=== PATIENT | male | born 1955 | race Caucasian/White ===

== ENCOUNTER 2016-09-07 10:40 | Emergency (ER) | payer MEDICARE ==
--- NOTE | 2016-09-07 11:03 | ERNOTE ---
Medical Problem HPI - General Chief Complaint: General Assessment Time Seen by Provider: 09/07/16 10:40 Source: patient Exam Limitations: no limitations - Immun/Allergies/Home Medications Immunizations: IMMUNIZATION HX Immunizations Up to Date No Allergies/Adverse Reactions: Allergies No Known Allergies Allergy (Unverified 09/07/16 10:54) Home Medications: HOME MEDICATIONS Baclofen 10 mg PO TID 09/07/16 [Last Taken Unknown] Gabapentin [Neurontin] 300 mg PO TID 09/07/16 [Last Taken Unknown] HYDROcodone/ACETAMINOPHEN [[place] 5-325 Tablet] 1 each PO DAILY 09/07/16 [Last Taken Unknown] Oxybutynin Chloride [Ditropan Xl] 10 mg PO DAILY 09/07/16 [Last Taken Unknown] Ramipril 1.25 mg PO DAILY 09/07/16 [Last Taken Unknown] Sertraline HCl [Zoloft] 150 mg PO DAILY 09/07/16 [Last Taken Unknown] traZODone HCL [Trazodone HCl] 100 mg PO HS 09/07/16 [Last Taken Unknown] - History of Present History Narrative: Patient is here for concerns about increased numbness on the right side of his body. Three years ago he had a stroke that affected the right side of this body. He give the story of a fall with head injury, prolonged coma/amnesia, and head surgery so it was most likely a traumatic/hemorrhagic stroke. He has had decreased sensation, functioning and chronic pain on the right side since. Two weeks ago he ran out of his hydrocodone, tramadol and xanax, but was still on his other medication including gabapentin and baclofen. He was not able to get in with his doctor till three days ago, was restarted on vicodin at a lower dose, but did not get his tramadol and xanax refilled. He states that he has felt 'bad' since running out of his medication with increased pain on the right side. When he woke up this morning at 09:00 his right arm was across his chest and felt more numb than usual, he got scared and called EMS. He has chronic double vision since the stroke, no new fall, no recent illness. Review of Systems - Review of Systems Constitutional: Absent: recent illness, fever, chills EYE: Present: double vision - chronic ENT: Absent: nose congestion, sore throat Respiratory: Absent: shortness of breath, cough Cardiology: Absent: chest pain Gastrointestinal/Abdominal: Absent: nausea, vomiting, abdominal pain Genitourinary: Present: no symptoms reported Musculoskeletal: Absent: back pain, neck pain Skin: Absent: rash Neurological: Present: See HPI, headache, numbness - Patient's Past Medical History Patient History - Medical: Anxiety, Chronic Pain Patient History - Cardiac/Respiratory: CVA/Stroke, Hypertension, Hyperlipidemia Patient History - Cancer: No Hx of Cancer Patient History - Other: None - Social History Living Situations: home Psych History: Hx of Anxiety, Hx of Depression Alcohol Use: heavy - 6-8 beer daily between noon and midnight - Immunizations Immunizations Up to Date: No Physical Exam - Physical Exam General Appearance: Present: wd/wn, alert, no apparent distress, anxious Eye Exam: Normal inspection: bilateral, PERRL: bilateral, EOMI: bilateral - reports double vision on exam (chronic since CVA) Ears, Nose, Throat: Present: normal ENT inspection, normal pharynx Neck: Present: normal inspection, nontender, supple, full range of motion Respiratory: Present: no respiratory distress, normal breath sounds, no accessory muscle use, lungs clear Cardiovascular/Chest: Present: regular rate, rhythm, no murmur, normal peripheral pulses Gastrointestinal/Abdominal: Present: nontender, nondistended, soft Extremity Exam: Present: normal inspection, no edema, other - right hand muscle atrophy Neurological Exam: Present: alert, oriented, normal mood/affect, social work case manager II-XII nml as tested, normal cerebellar test - on left, on right side severe intention tremor, other - able to hold up both hand (with chaking on the right) Skin Exam: Present: normal color, warm/dry ED Progress - Results and Orders Patient's Lab Results:: I have reviewed the patient's lab results. - Vital Signs Patient's Vital Signs:: I have reviewed the patient's vital signs. Vital Signs: Vital Signs 09/07/16 10:41 Temperature 36.7 C Pulse Rate 92 Respiratory 15 Rate Blood Pressure 164/97 O2 Sat by Pulse 99 Oximetry - EKG EKG: NSR, no ST T wave changes, other - no acute changes EKG read: Interp. by me - X-Ray X-Ray #1 X-Ray: chest - no acute changes Interpretation: Reviewed by me - CT/Ultrasound CT/Ultrasound Narrative: CT head: chronic no acute intracranial changes - Progress/Reassessment Chief Complaint: General Assessment Progress Note-Subjective: 09/07/16 11:08 on review of [employer] patient has only been getting small amounts of xanax, tramadol , hydrocodone in decreasing amounts over the last few months 09/07/16 11:51 patient resting, woke patient up to discuss test results at length, explained that I won't be able to refill chronic pain medication, but would give him one dose here Departure - Departure Clinical Impression: Chronic pain Qualifiers: Chronic pain type: due to trauma Qualified Code(s): G89.21 - Chronic pain due to trauma Disposition: Home self-care Condition: Good Instructions: Chronic Pain Additional Instructions: call your doctor after the weekend to discuss your medication and possible referral to a pain specialist or neurologist take all your medication as prescribed Referrals: LINDA DYKES M.D. [Non Staff Physicians] -
[2016-09-07 11:14] LABS: Hematocrit 43.4 % (42.0-52.0); Hemoglobin 15.2 gm/dL (13.5-18.0); Mean Cell Volume 89.9 fl (78-100); Mean Corpuscular Hemoglobin 31.5 pg (27-31); Neutrophil # 3.1 K/mm3 (1.3-6.0); Neutrophil % 63.1 % (42-75.0); Red Blood Count 4.83 M/mm3 (4.7-6.0); Red Cell Distribution Width 12.3 % (11.5-14.0); White Blood Count 4.9 K/mm3 (4.0-10.5)
[2016-09-07 11:27] LABS: Albumin * 3.8 gm/dl (3.4-5.0); Anion Gap 17.4 mmol/L (6.8-13.8); BUN/Creatinine Ratio 12.3 (9.0-21.6); Bilirubin, Total 0.6 mg/dL (0.0-1.1); Ca. Corrected For Albumin 9.1 mg/dL (8.4-10.2); Calcium * 9.3 mg/dL (7.9-10.9); Carbon Dioxide 23.8 mmol/L (24-32.6); Platelet Count 170 K/mm3 (150-450); Potassium 4.2 mmol/L (3.4-4.6); Total Protein 7.3 gm/dL (6.2-8.2)
[2016-09-07 11:32] LABS: INR 1.06 INR (0.90-1.10); Partial Thrombolplastin Time 24.3 Seconds (24-32)
[2016-09-07] MEDS ORDERED: ALPRAZolam 0.25 MG TABLET PO ONE (11:50)
[2016-09-07] MEDS ORDERED: oxyCODONE HCL/ACETAMINOPHEN 1 TAB TABLET PO ONE (11:50)
[2016-09-07] MEDS ORDERED: oxyCODONE HCL/ACETAMINOPHEN 1 TAB TABLET ONE (12:06)
[2016-09-07] MEDS ORDERED: ALPRAZolam 0.25 MG TABLET ONE (12:06)
[2016-09-07 12:27] VITALS: BP 136/84
--- OUTSIDE RECORDS SUMMARY | 2016-09-07 12:37 | XMS REPORT | CCD ---
:1955 Author Name IVELISSE FRANCO Address [address] [facility] Unavailable [place], [place] [id number] Care Team Providers Name Role Phone SHAN OBRIEN MD Attending Physician Unavailable SHAN OBRIEN MD Er Physician 1 Unavailable TRAVON Moreland Registered Nurse Unavailable Vital Signs Unknown. Allergies Allergy Code Allergy Type Reaction Status No Known Allergies 0 No known allergies Active Procedures Procedure Code Procedure Type Date CT HEAD W/O 78759407 SNOMED CT 04/02/[address] 04/02/2013 History of Immunizations Unknown. Problems Problem Code Start Date Resolved Date Status Other and unspecified intracranial 107537873 04/02/2013 Active hemorrhage following injury, without mention of open intracranial wound, with state of consciousness unspecified Encephalopathy, unspecified 25143205 04/02/2013 Active Other and unspecified alcohol dependence, 131922583 Active continuous drinking behavior Results ALCOHOL Test Name Code Test Result Test Units Test Date/Time ALCOHOL 3.0000 mg/dL 04/02/2013 11:51 LIPASE Test Name Code Test Result Test Units Test Date/Time LIPASE 132.0000 U/L 04/02/2013 11:35 CBC Test Name Code Test Result Test Units Test Date/Time WBC 6690-2 5.0000 K/uL 04/02/2013 11:35 RBC 789-8 4.5000 M/uL 04/02/2013 11:35 HEMOGLOBIN 718-7 14.1000 g/dL 04/02/2013 11:35 HEMATOCRIT 41.5000 % 04/02/2013 11:35 MCV 92.2000 fL 04/02/2013 11:35 MCH 31.3000 PG 04/02/2013 11:35 MCHC 34.0000 G/DL 04/02/2013 11:35 RDW-SD 41.9000 FL 04/02/2013 11:35 RDW-CV 12.6000 % 04/02/2013 11:35 PLATELETS 155.0000 K/UL 04/02/2013 11:35 MPV 9.0000 FL 04/02/2013 11:35 %GRAN 71.9000 % 04/02/2013 11:35 %LYMPH 8.8000 % 04/02/2013 11:35 %MONO 18.3000 % 04/02/2013 11:35 %EOS 0.0000 % 04/02/2013 11:35 %BASO 1.0000 % 04/02/2013 11:35 #GRAN 3.5800 K/UL 04/02/2013 11:35 #LYMPH 0.4400 K/UL 04/02/2013 11:35 #MONO 0.9100 K/UL 04/02/2013 11:35 #EOS 0.0000 K/UL 04/02/2013 11:35 #BASO 0.0500 K/UL 04/02/2013 11:35 SLIDE REVIEWED? NOT INDICATED N/A 04/02/2013 11:35 MANUAL DIFF NOT INDICATED N/A 04/02/2013 11:35 COMPREHENSIVE METABOLIC PANEL Test Name Code Test Result Test Units Test Date/Time GLUCOSE 117.0000 mg/dL 04/02/2013 11:35 SODIUM 138.0000 mmol/L 04/02/2013 11:35 POTASSIUM 3.4000 mmol/L 04/02/2013 11:35 CHLORIDE 100.0000 mmol/L 04/02/2013 11:35 CO2 28.0000 mmol/L 04/02/2013 11:35 BUN 8.0000 mg/dL 04/02/2013 11:35 CREATININE 0.9000 mg/dL 04/02/2013 11:35 BUN/CREAT 8.9000 04/02/2013 11:35 CALCIUM 8.8000 mg/dL 04/02/2013 11:35 TOTAL BILI 0.6000 mg/dL 04/02/2013 11:35 TOTAL PROTEIN 7.8000 g/dL 04/02/2013 11:35 ALBUMIN 3.8000 g/dL 04/02/2013 11:35 A/G RATIO 0.9000 04/02/2013 11:35 ALKALINE PHOS 95.0000 IU/L 04/02/2013 11:35 AST/SGOT 24.0000 IU/L 04/02/2013 11:35 ALT/SGPT 26.0000 IU/L 04/02/2013 11:35 ANION GAP 13.8000 mmol/L 04/02/2013 11:35 AGE 57.0000 YE[age] 04/02/2013 11:35 GFR 92.7800 ml/min 04/02/2013 11:35 Medications Unknown. Medications Administered Unknown. Encounters Encounter Diagnosis Diagnosis Code Start Date TRAUMATIC BRAIN HEM NEC 95889 04/02/2013 Social History Smoking Status Code Start Date End Date Former smoker [id number] Patient Decision Aids Unknown. Instructions You were admitted to [facility] on 04/02/2013 with a principle diagnosis of TRAUMATIC BRAIN HEM NEC. You had the following tests done: IAMEHURXRUDPDIUSJRZFGLQRILXFGTLA0TNWQXEQWFSKDFHXO/CREATCALCIUMTOTAL BILITOTAL PROTEINALBUMINA/G RATIOALKALINE PHOSAST/SGOTALT/SGPTANION LWVTENIGIFSSNXKTGBTXEXCEVAVNOSISHPJLBAMGWTPTHOGP-HUDRR-MKNFVQXPHHIYOR%GRAN% LYMPH%MONO%EOS%BASO#GRAN#LYMPH#MONO#EOS#BASOSLIDE REVIEWED?MANUAL DIFFLIPASEALCOHOL You were discharged from [facility] on 04/02/2013. Should you have any questions prior to discharge, please contact a member of your healthcare team. If you have left the hospital and have any questions, please contact your primary care physician. Chief Complaint and Reason For Visit Chief Complaint Date of Onset Fall Function Status Unknown. Plan of Care Unknown. Referral/Transition of Care Unknown.
--- OUTSIDE RECORDS SUMMARY | 2016-09-07 12:37 | XMS REPORT | CCD ---
:1955 Author Name MAGDALENO VIGIL Address [address] [facility] Unavailable [place], [place] [id number] Care Team Providers Name Role Phone LINDA DYKES Attending Physician Unavailable Vital Signs Unknown or Not Available. Allergies Allergy Code Allergy Type Reaction Status No Known Allergies 0 No known allergies Active Procedures Procedure Code Procedure Type Date TSH 78987757 SNOMED CT 02/05/2015 History of Immunizations Unknown or Not Available. Problems Problem Code Start Date Resolved Date Status Other and unspecified intracranial 512715544 04/02/2013 Active hemorrhage following injury, without mention of open intracranial wound, with state of consciousness unspecified Encephalopathy, unspecified 19386595 04/02/2013 Active Other and unspecified alcohol dependence, 471697479 Active continuous drinking behavior Pain in right hip 33072889 10/08/2013 Active Results TSH - Collect Date/Time: 02/05/2015 11:13 Test Name Code Test Result Test Units Test Ref Range TSH 3016-3 2.147 uIU/ml L=0.360 H=3.740 Active Medications Medication Code Dose Units Frequency Route Modification Start Date/Time ALPRAZolam 1MG 467908 1 MILLIGRAMS 2 x a day, as ORAL 02/06/2014 Oral Tablet needed 18:26 Prescription Detail TAKE 1 MILLIGRAMS ORAL 2 x a day, as needed Aspirin 81MG Oral Tablet, Enteric 489008 81 MILLIGRAMS DAILY ORAL 02/06 18:26 Coated Prescription Detail TAKE 81 MILLIGRAMS ORAL DAILY Famotidine 10MG Oral Tablet 493678 10 MILLIGRAMS TWICE A DAY ORAL 02/06 18:26 Prescription Detail TAKE 10 MILLIGRAMS ORAL TWICE A DAY Gabapentin 300MG Oral 908607 300 MILLIGRAMS THREE TIMES A DAY ORAL 18:26 Capsule Prescription Detail TAKE 300 MILLIGRAMS ORAL THREE TIMES A DAY HYDROcodone bitartrate-acetaminophen 363650 1 EACH NEEDED ORAL 02/06 18:26 325MG-5MG Oral Tablet Prescription Detail TAKE 1 EACH ORAL NEEDED Oxybutynin 10MG Oral Tablet, 424342 10 MILLIGRAMS DAILY ORAL 2013 18:26 Extended Release Prescription Detail TAKE 10 MILLIGRAMS ORAL DAILY traMADol HCL 50MG Oral 342886 50 MILLIGRAMS THREE TIMES A DAY ORAL 18:26 Tablet Prescription Detail TAKE 50 MILLIGRAMS ORAL THREE TIMES A DAY Triamcinolone Acetonide 2525791 1 EACH DAILY TOPICAL APPLICATION 2013 18:26 0.025% Topical application Ointment Prescription Detail 1 EACH TOPICAL APPLICATION DAILY Vitamin B1 100MG Oral Tablet 444910 100 MILLIGRAMS DAILY ORAL 2013 18:26 Prescription Detail TAKE 100 MILLIGRAMS ORAL DAILY Vitamin D 400IU Oral 779997 400 INTERNATIONAL UNITS DAILY ORAL 2013 18:26 Tablet Prescription Detail TAKE 400 INTERNATIONAL UNITS ORAL DAILY Dok 100MG Oral 0959220 100 MILLIGRAMS *TWICE DAILY BY MOUTH 11/04/2013 08:20 Capsule, Liquid Filled Prescription Detail TAKE 100 MILLIGRAMS BY MOUTH *TWICE DAILY Lisinopril 30MG Oral 91684452284 30 MILLIGRAMS DAILY BY MOUTH 2013 08:20 Tablet Prescription Detail TAKE 30 MILLIGRAMS BY MOUTH DAILY Sertraline Hydrochloride 257610 150 MILLIGRAMS DAILY BY MOUTH 2013 08:20 100MG Oral Tablet Prescription Detail TAKE 150 MILLIGRAMS BY MOUTH DAILY Multivitamin Oral Tablet 777066 1 EACH DAILY ORAL 11/04/2013 08:19 Prescription Detail TAKE 1 EACH ORAL DAILY Medications Administered During Visit Unknown or Not Available. Encounters Encounter Diagnosis Diagnosis Code Start Date Fatigue 77364735 02/05/2015 Social History Smoking Status Code Start Date End Date Never smoker 811077817 Patient Decision Aids Unknown or Not Available. Discharge Instructions You were admitted to [facility] on 02/05/2015 with a principal diagnosis of Fatigue . You were discharged from [facility] on 02/05/2015. Should you have any questions prior to discharge, please contact a member of your healthcare team. If you have left the hospital and have any questions, please contact your primary care physician. Chief Complaint and Reason For Visit Unknown or Not Available. Function Status Unknown or Not Available. Plan of Care Unknown or Not Available. Referral/Transition of Care Unknown or Not Available.
--- OUTSIDE RECORDS SUMMARY | 2016-09-07 12:37 | XMS REPORT | CCD ---
:1955 Author Name AKILIVELISSE MANZO Dominik Address [address] [facility] Unavailable [place], [place] [id number] Care Team Providers Name Role Phone PJ DODD, JASIEL PINON Attending Physician Unavailable JASIEL OLIVA MD Er Physician 1 Unavailable Vital Signs Vital Sign Value Unit Weight Measured 190 lbs Height 70 in BMI (Body Mass Index) 27.26 kg/m^2 BSA (Body Surface Area) 2.06 m^2 Allergies Allergy Code Allergy Type Reaction Status No Known Allergies 0 No known allergies Active Procedures Unknown. History of Immunizations Unknown. Problems Problem Code Start Date Resolved Date Status Other and unspecified intracranial 499032109 04/02/2013 Active hemorrhage following injury, without mention of open intracranial wound, with state of consciousness unspecified Encephalopathy, unspecified 98702347 04/02/2013 Active Other and unspecified alcohol dependence, 519585046 Active continuous drinking behavior Results PT/PTT, PLASMA Test Name Code Test Result Test [place] [address]-30 10.3000 Sec 07/27/2013 11:08 INR 98457-6 1.0000 07/27/2013 11:08 PTT 07146-9 24.3000 Sec 07/27/2013 11:08 COMPREHENSIVE METABOLIC PANEL Test Name Code Test Result Test Units Test Date/Time GLUCOSE 108.0000 mg/dL 07/27/2013 11:08 SODIUM 133.0000 mmol/L 07/27/2013 11:08 POTASSIUM 4.6000 mmol/L 07/27/2013 11:08 CHLORIDE 98.0000 mmol/L 07/27/2013 11:08 CO2 31.0000 mmol/L 07/27/2013 11:08 BUN 21.0000 mg/dL 07/27/2013 11:08 CREATININE 0.9000 mg/dL 07/27/2013 11:08 BUN/CREAT 23.3000 07/27/2013 11:08 CALCIUM 9.3000 mg/dL 07/27/2013 11:08 TOTAL BILI 0.4000 mg/dL 07/27/2013 11:08 TOTAL PROTEIN 7.2000 g/dL 07/27/2013 11:08 ALBUMIN 3.6000 g/dL 07/27/2013 11:08 A/G RATIO 1.0000 07/27/2013 11:08 ALKALINE PHOS 124.0000 IU/L 07/27/2013 11:08 AST/SGOT 13.0000 IU/L 07/27/2013 11:08 ALT/SGPT 19.0000 IU/L 07/27/2013 11:08 ANION GAP 9.0000 mmol/L 07/27/2013 11:08 AGE 57.0000 YE[age] 07/27/2013 11:08 GFR 92.7800 ml/min 07/27/2013 11:08 CBC Test Name Code Test Result Test Units Test Date/Time WBC 6690-2 8.7000 K/uL 07/27/2013 11:08 RBC 789-8 4.1800 M/uL 07/27/2013 11:08 HEMOGLOBIN 718-7 12.2000 g/dL 07/27/2013 11:08 HEMATOCRIT 35.6000 % 07/27/2013 11:08 MCV 85.2000 fL 07/27/2013 11:08 MCH 29.2000 PG 07/27/2013 11:08 MCHC 34.3000 G/DL 07/27/2013 11:08 RDW-SD 38.1000 FL 07/27/2013 11:08 RDW-CV 12.6000 % 07/27/2013 11:08 PLATELETS 221.0000 K/UL 07/27/2013 11:08 MPV 9.0000 FL 07/27/2013 11:08 %GRAN 72.6000 % 07/27/2013 11:08 %LYMPH 14.5000 % 07/27/2013 11:08 %MONO 10.4000 % 07/27/2013 11:08 %EOS 2.2000 % 07/27/2013 11:08 %BASO 0.3000 % 07/27/2013 11:08 #GRAN 6.3000 K/UL 07/27/2013 11:08 #LYMPH 1.2600 K/UL 07/27/2013 11:08 #MONO 0.9000 K/UL 07/27/2013 11:08 #EOS 0.1900 K/UL 07/27/2013 11:08 #BASO 0.0300 K/UL 07/27/2013 11:08 SLIDE REVIEWED? NOT INDICATED N/A 07/27/2013 11:08 MANUAL DIFF NOT INDICATED N/A 07/27/2013 11:08 Medications Medication Code Dose Units Frequency Route Modification Start Stop Date/Time Date/Time Oxycodone HCl 3296543 20 MILLIGRA Every 4hr ORAL 5MG Oral MS as needed Tablet Milk Of 587006 30 MILLILIT Every 6hr ORAL Magnesia ERS as needed 400MG/5ML Oral Suspension Tylenol 325MG 452230 650 MILLIGRA Every 4hr ORAL Oral Tablet MS as needed Bisac-Evac 753910 10 MILLIGRA NEEDED RECTAL 10MG Rectal MS Suppository Alprazolam 619527 0.25 MILLIGRA Every 8 hr ORAL 0.25MG Oral MS as needed Tablet TraZODONE 999121 50 MILLIGRA BEFORE BED ORAL Hydrochloride MS 50MG Oral Tablet Tramadol 50MG 035652 50 MILLIGRA TWICE A ORAL Oral Tablet MS DAY Sertraline 569953 150 MILLIGRA DAILY ORAL 100MG Oral MS Tablet Meloxicam 105579 7.5 MILLIGRA DAILY ORAL 7.5MG Oral MS Tablet Lisinopril 948940 30 MILLIGRA DAILY ORAL 30MG Oral MS Tablet Gabapentin 372507 300 MILLIGRA THREE ORAL 300MG Oral MS TIMES A Capsule DAY Doc-Q-Lace 6893576 100 MILLIGRA DAILY ORAL 100MG Oral MS Capsule, Liquid Filled Multivitamin 924976 1 EACH DAILY ORAL Oral Tablet Baclofen 10MG 473549 5 MILLIGRA THREE ORAL Oral Tablet MS TIMES A DAY Medications Administered Unknown. Encounters Encounter Diagnosis Diagnosis Code Start Date CL SKUL BASE FX W O COMA 88032 07/27/2013 Social History Smoking Status Code Start Date End Date Unknown if ever smoked [id number] Patient Decision Aids Unknown. Instructions You were admitted to [facility] on 07/27/2013 with a principle diagnosis of CL SKUL BASE FX W O COMA. You had the following procedures done:INJECT INFUSE NEC You were discharged from [facility] on 07/27/2013. Should you have any questions prior to discharge, please contact a member of your healthcare team. If you have left the hospital and have any questions, please contact your primary care physician. Chief Complaint and Reason For Visit Chief Complaint Date of Onset FALL Function Status Unknown. Plan of Care Unknown. Referral/Transition of Care Unknown.
--- OUTSIDE RECORDS SUMMARY | 2016-09-07 12:37 | XMS REPORT | CCD ---
:1955 Author Name MAGDALENO VIGIL Address [address] [facility] Unavailable [place], [place] [phone] Care Team Providers Name Role Phone NESHA TAVAREZ Attending Physician Unavailable NESHA TAVAREZ Er Physician 1 Unavailable Vital Signs Unknown or Not Available. Allergies Allergy Code Allergy Type Reaction Status No Known Allergies 0 No known allergies Active Procedures Procedure Code Procedure Type Date RIBS-UNI W 1 VW CHEST LT 09987951 SNOMED CT 06/13/2015 INCENTIVE SPIROMETRY DEVICE 271032479 SNOMED CT 06/13/2015 History of Immunizations Unknown or Not Available. Problems Problem Code Start Date Resolved Date Status Other and unspecified intracranial 148690656 04/02/2013 Active hemorrhage following injury, without mention of open intracranial wound, with state of consciousness unspecified Encephalopathy, unspecified 30099487 04/02/2013 Active Other and unspecified alcohol dependence, 843810596 Active continuous drinking behavior Pain in right hip 20934283 10/08/2013 Active Results Unknown or Not Available. Active Medications Medication Code Dose Units Frequency Route Modification Start Date/Time ALPRAZolam 1MG 81795653496 1 MILLIGRAMS 2 x a day, ORAL 02/06/2014 Oral Tablet as needed 18:26 Prescription Detail TAKE 1 MILLIGRAMS ORAL 2 x a day, as needed Aspirin 81MG Oral Tablet, Enteric 835441 81 MILLIGRAMS DAILY ORAL 02/06 18:26 Coated Prescription Detail TAKE 81 MILLIGRAMS ORAL DAILY Famotidine 10MG Oral Tablet 458667 10 MILLIGRAMS TWICE A DAY ORAL 02/06 18:26 Prescription Detail TAKE 10 MILLIGRAMS ORAL TWICE A DAY Gabapentin 300MG Oral 244978 300 MILLIGRAMS THREE TIMES A DAY ORAL 18:26 Capsule Prescription Detail TAKE 300 MILLIGRAMS ORAL THREE TIMES A DAY HYDROcodone bitartrate-acetaminophen 694463 1 EACH NEEDED ORAL 02/06 18:26 325MG-5MG Oral Tablet Prescription Detail TAKE 1 EACH ORAL NEEDED Oxybutynin 10MG Oral Tablet, 028588 10 MILLIGRAMS DAILY ORAL 2013 18:26 Extended Release Prescription Detail TAKE 10 MILLIGRAMS ORAL DAILY traMADol HCL 50MG Oral 956517 50 MILLIGRAMS THREE TIMES A DAY ORAL 18:26 Tablet Prescription Detail TAKE 50 MILLIGRAMS ORAL THREE TIMES A DAY Triamcinolone Acetonide 6452664 1 EACH DAILY TOPICAL APPLICATION 2013 18:26 0.025% Topical application Ointment Prescription Detail 1 EACH TOPICAL APPLICATION DAILY Vitamin B1 100MG Oral Tablet 559987 100 MILLIGRAMS DAILY ORAL 2013 18:26 Prescription Detail TAKE 100 MILLIGRAMS ORAL DAILY Vitamin D 400IU Oral 036679 400 INTERNATIONAL UNITS DAILY ORAL 2013 18:26 Tablet Prescription Detail TAKE 400 INTERNATIONAL UNITS ORAL DAILY Dok 100MG Oral 2957110 100 MILLIGRAMS *TWICE DAILY BY MOUTH 11/04/2013 08:20 Capsule, Liquid Filled Prescription Detail TAKE 100 MILLIGRAMS BY MOUTH *TWICE DAILY Lisinopril 30MG Oral Tablet 757995 30 MILLIGRAMS DAILY BY MOUTH 2013 08:20 Prescription Detail TAKE 30 MILLIGRAMS BY MOUTH DAILY Sertraline Hydrochloride 713300 150 MILLIGRAMS DAILY BY MOUTH 2013 08:20 100MG Oral Tablet Prescription Detail TAKE 150 MILLIGRAMS BY MOUTH DAILY Multivitamin Oral Tablet 0168752 1 EACH DAILY ORAL 11/04/2013 08:19 Prescription Detail TAKE 1 EACH ORAL DAILY Medications Administered During Visit Unknown or Not Available. Encounters Encounter Diagnosis Diagnosis Code Start Date Fracture of one rib, left side, initial encounter for [id number] 06/13/2015 closed fracture Social History Smoking Status Code Start Date End Date Never smoker 120217518 Patient Decision Aids Unknown or Not Available. Discharge Instructions You were admitted to [facility] on 06/13/2015 10:40 with a principal diagnosis of Fracture of one rib, left side, init for clos fx You were discharged from [facility] on 06/13/2015 12:12 Should you have any questions prior to discharge, please contact a member of your healthcare team. If you have left the hospital and have any questions, please contact your primary care physician. Chief Complaint and Reason For Visit Chief Complaint Date of Onset SHORT OF BREATH AFTER FALL Function Status Unknown or Not Available. Plan of Care Unknown or Not Available. Referral/Transition of Care Unknown or Not Available.
--- OUTSIDE RECORDS SUMMARY | 2016-09-07 12:37 | XMS REPORT | CCD ---
:1955 Author Name MAGDALENO VIGIL Address [address] Unavailable [place], [place] [id number] Care Team Providers Name Role Phone LINDA DYKES Attending Physician Unavailable Vital Signs Unknown or Not Available. Allergies Allergy Code Allergy Type Reaction Status No Known Allergies 0 No known allergies Active Procedures Procedure Code Procedure Type Date LIPID PANEL [id number] SNOMED CT 03/13/2016 History of Immunizations Unknown or Not Available. Problems Problem Code Start Date Resolved Date Status Other and unspecified intracranial [id number] 04/02/2013 Active hemorrhage following injury, without mention of open intracranial wound, with state of consciousness unspecified Encephalopathy, unspecified 44963528 04/02/2013 Active Other and unspecified alcohol dependence, [id number] Active continuous drinking behavior Pain in right hip 06471742 10/08/2013 Active Results COMPREHENSIVE METABOLIC PANEL - Collect Date/Time: 03/13/2016 10:19 Test Name Code Test Result Test Units Test Ref Range GLUCOSE 88 mg/dL L=74 H=106 SODIUM 142 mmol/L L=136 H=145 POTASSIUM 4.1 mmol/L L=3.5 H=5.1 CHLORIDE 102 mmol/L L=98 H=107 CO2 32 mmol/L L=21 H=32 BUN 7.0 mg/dL L=7.0 H=18.0 CREATININE 0.7 mg/dL L=0.8 H=1.3 BUN/CREAT 10.0 L=7.6 H=21.2 CALCIUM 8.9 mg/dL L=8.6 H=10.1 TOTAL BILI 0.5 mg/dL L=0.2 H=1.0 TOTAL PROTEIN 7.2 g/dL L=6.4 H=8.2 ALBUMIN 3.7 g/dL L=3.4 H=5.0 A/G RATIO 1.1 ALKALINE PHOS 81 IU/L L=50 H=136 AST/SGOT 14 IU/L L=15 H=37 ALT/SGPT 14 IU/L L=12 H=78 ANION GAP 11.8 mmol/L L=7.0 H=16.0 AGE 60 YEARS GFR 122.68 ml/min LIPID PANEL - Collect Date/Time: 03/13/2016 10:19 Test Name Code Test Result Test Units Test Ref Range CHOLESTEROL 2093-3 156 mg/dL L=0 H=200 TRIGLYCERIDES 2571-8 87 mg/dL L=0 H=200 HDL 2085-9 71 mg/dL L=40 H=60 LDL 2089-1 68 mg/dL L=0 H=160 CHOL/HDL 9830-1 2.2 L=0.0 H=6.7 Active Medications Medication Code Dose Units Frequency Route Modification Start Date/Time ALPRAZolam 1MG 641587 1 MILLIGRAMS 2 x a day, as ORAL 02/06/2014 Oral Tablet needed 18:26 Prescription Detail TAKE 1 MILLIGRAMS ORAL 2 x a day, as needed Aspirin 81MG Oral Tablet, Enteric 321854 81 MILLIGRAMS DAILY ORAL 02/06 18:26 Coated Prescription Detail TAKE 81 MILLIGRAMS ORAL DAILY Famotidine 10MG Oral Tablet 860457 10 MILLIGRAMS TWICE A DAY ORAL 02/06 18:26 Prescription Detail TAKE 10 MILLIGRAMS ORAL TWICE A DAY Gabapentin 300MG Oral [id number] 300 MILLIGRAMS THREE TIMES A DAY ORAL 18:26 Capsule Prescription Detail TAKE 300 MILLIGRAMS ORAL THREE TIMES A DAY HYDROcodone bitartrate-acetaminophen 277321 1 EACH NEEDED ORAL 02/06 18:26 325MG-5MG Oral Tablet Prescription Detail TAKE 1 EACH ORAL NEEDED Oxybutynin 10MG Oral Tablet, 791440 10 MILLIGRAMS DAILY ORAL 2013 18:26 Extended Release Prescription Detail TAKE 10 MILLIGRAMS ORAL DAILY traMADol HCL 50MG Oral 477712 50 MILLIGRAMS THREE TIMES A DAY ORAL 18:26 Tablet Prescription Detail TAKE 50 MILLIGRAMS ORAL THREE TIMES A DAY Triamcinolone Acetonide 2618474 1 EACH DAILY TOPICAL APPLICATION 2013 18:26 0.025% Topical application Ointment Prescription Detail 1 EACH TOPICAL APPLICATION DAILY Vitamin B1 100MG Oral Tablet 964802 100 MILLIGRAMS DAILY ORAL 2013 18:26 Prescription Detail TAKE 100 MILLIGRAMS ORAL DAILY Vitamin D 400IU Oral 691020 400 INTERNATIONAL UNITS DAILY ORAL 2013 18:26 Tablet Prescription Detail TAKE 400 INTERNATIONAL UNITS ORAL DAILY Dok 100MG Oral [id number] 100 MILLIGRAMS *TWICE DAILY BY MOUTH 11/04/2013 08:20 Capsule, Liquid Filled Prescription Detail TAKE 100 MILLIGRAMS BY MOUTH *TWICE DAILY Lisinopril 30MG Oral Tablet 424692 30 MILLIGRAMS DAILY BY MOUTH 2013 08:20 Prescription Detail TAKE 30 MILLIGRAMS BY MOUTH DAILY Sertraline Hydrochloride 386582 150 MILLIGRAMS DAILY BY MOUTH 2013 08:20 100MG Oral Tablet Prescription Detail TAKE 150 MILLIGRAMS BY MOUTH DAILY Multivitamin Oral Tablet 0871882 1 EACH DAILY ORAL 11/04/2013 08:19 Prescription Detail TAKE 1 EACH ORAL DAILY Medications Administered During Visit Unknown or Not Available. Encounters Encounter Diagnosis Diagnosis Code Start Date Hyperlipidemia [id number] 03/13/2016 Social History Smoking Status Code Start Date End Date Never smoker [id number] Patient Decision Aids Unknown or Not Available. Discharge Instructions You were admitted to [facility] on 03/13/2016 09:44 with a principal diagnosis of Hyperlipidemia, unspecified You had the following tests done:COMPREHENSIVE METABOLIC PANELLIPID PANEL You were discharged from [facility] on 03/13/2016 09:44 Should you have any questions prior to [...]
--- OUTSIDE RECORDS SUMMARY | 2016-09-07 12:37 | XMS REPORT | CCD ---
:1955 Author Name MAGDALENO VIGIL Address [address] [facility] Unavailable [place], [place] [phone] Care Team Providers Name Role Phone LINDA DYKES Attending Physician Unavailable Vital Signs Unknown or Not Available. Allergies Allergy Code Allergy Type Reaction Status No Known Allergies 0 No known allergies Active Procedures Procedure Code Procedure Type Date RIBS-UNI W 1 VW CHEST RT [id number] SN[address] 07/09/2015 History of Immunizations Unknown or Not Available. Problems Problem Code Start Date Resolved Date Status Other and unspecified intracranial 734737844 04/02/2013 Active hemorrhage following injury, without mention of open intracranial wound, with state of consciousness unspecified Encephalopathy, unspecified 99844377 04/02/2013 Active Other and unspecified alcohol dependence, 092925896 Active continuous drinking behavior Pain in right hip 58429974 10/08/2013 Active Results Unknown or Not Available. Active Medications Medication Code Dose Units Frequency Route Modification Start Date/Time ALPRAZolam 1MG [id number] 1 MILLIGRAMS 2 x a day, ORAL 02/06/2014 Oral Tablet as needed 18:26 Prescription Detail TAKE 1 MILLIGRAMS ORAL 2 x a day, as needed Aspirin 81MG Oral Tablet, Enteric 796345 81 MILLIGRAMS DAILY ORAL 02/06 18:26 Coated Prescription Detail TAKE 81 MILLIGRAMS ORAL DAILY Famotidine 10MG Oral Tablet 443746 10 MILLIGRAMS TWICE A DAY ORAL 02/06 18:26 Prescription Detail TAKE 10 MILLIGRAMS ORAL TWICE A DAY Gabapentin 300MG Oral 680999 300 MILLIGRAMS THREE TIMES A DAY ORAL 18:26 Capsule Prescription Detail TAKE 300 MILLIGRAMS ORAL THREE TIMES A DAY HYDROcodone bitartrate-acetaminophen 869105 1 EACH NEEDED ORAL 02/06 18:26 325MG-5MG Oral Tablet Prescription Detail TAKE 1 EACH ORAL NEEDED Oxybutynin 10MG Oral Tablet, 898888 10 MILLIGRAMS DAILY ORAL 2013 18:26 Extended Release Prescription Detail TAKE 10 MILLIGRAMS ORAL DAILY traMADol HCL 50MG Oral 793105 50 MILLIGRAMS THREE TIMES A DAY ORAL 18:26 Tablet Prescription Detail TAKE 50 MILLIGRAMS ORAL THREE TIMES A DAY Triamcinolone Acetonide 9930680 1 EACH DAILY TOPICAL APPLICATION 2013 18:26 0.025% Topical application Ointment Prescription Detail 1 EACH TOPICAL APPLICATION DAILY Vitamin B1 100MG Oral Tablet 341485 100 MILLIGRAMS DAILY ORAL 2013 18:26 Prescription Detail TAKE 100 MILLIGRAMS ORAL DAILY Vitamin D 400IU Oral 055078 400 INTERNATIONAL UNITS DAILY ORAL 2013 18:26 Tablet Prescription Detail TAKE 400 INTERNATIONAL UNITS ORAL DAILY Dok 100MG Oral 1393125 100 MILLIGRAMS *TWICE DAILY BY MOUTH 11/04/2013 08:20 Capsule, Liquid Filled Prescription Detail TAKE 100 MILLIGRAMS BY MOUTH *TWICE DAILY Lisinopril 30MG Oral Tablet 627534 30 MILLIGRAMS DAILY BY MOUTH 2013 08:20 Prescription Detail TAKE 30 MILLIGRAMS BY MOUTH DAILY Sertraline Hydrochloride 205712 150 MILLIGRAMS DAILY BY MOUTH 2013 08:20 100MG Oral Tablet Prescription Detail TAKE 150 MILLIGRAMS BY MOUTH DAILY Multivitamin Oral Tablet 2961005 1 EACH DAILY ORAL 11/04/2013 08:19 Prescription Detail TAKE 1 EACH ORAL DAILY Medications Administered During Visit Unknown or Not Available. Encounters Encounter Diagnosis Diagnosis Code Start Date Multiple fractures of ribs, right side, initial encounter [id number] 07/09/2015 for closed fracture Social History Smoking Status Code Start Date End Date Never smoker [id number] Patient Decision Aids Unknown or Not Available. Discharge Instructions You were admitted to [facility] on 07/09/2015 11:18 with a principal diagnosis of Multiple fractures of ribs, right side, initial encounter for closed fract You were discharged from [facility] on 07/09/2015 11:18 Should you have any questions prior to [...]
--- OUTSIDE RECORDS SUMMARY | 2016-09-07 12:37 | XMS REPORT | CCD ---
:1955 Author Name SAE MORALES Address [address] Unavailable [place], [place] [phone] Care Team Providers Name Role Phone SOLO PHELAN Attending Physician Unavailable Vital Signs Unknown or Not Available. Allergies Allergy Code Allergy Type Reaction Status No Known Allergies 0 No known allergies Active Procedures Unknown or Not Available. History of Immunizations Unknown or Not Available. Problems Problem Code Start Date Resolved Date Status Other and unspecified intracranial 623631272 04/02/2013 Active hemorrhage following injury, without mention of open intracranial wound, with state of consciousness unspecified Encephalopathy, unspecified 78002175 04/02/2013 Active Other and unspecified alcohol dependence, 418095542 Active continuous drinking behavior Pain in right hip 76745889 10/08/2013 Active Results Unknown or Not Available. Medications Unknown or Not Available. Medications Administered Unknown or Not Available. Encounters Encounter Diagnosis Diagnosis Code Start Date ASEPT NECROSIS BONE NEC [id number] 10/10/2013 Social History Smoking Status Code Start Date End Date Never smoker [id number] Patient Decision Aids Unknown or Not Available. Discharge Instructions You were admitted to [facility] on 10/10/2013 with a principal diagnosis of ASEPT NECROSIS BONE NEC. You were discharged from [facility] on 10/13/2013. Should you have any questions prior to [...]
--- OUTSIDE RECORDS SUMMARY | 2016-09-07 12:37 | XMS REPORT | Continuity of Care Document ---
:1955 Author Organization [facility] ([facility]) Address [place] [address] Phone [phone] Care Team Providers Name Role Phone Provider, No-Primary Care Primary Care Provider Unavailable Source Comments This disclosure is being made pursuant to the Care Everywhere program, applicable federal and state laws, and may not contain all informaitonavailable regarding this patient.[facility] ([facility]) Active Allergies and Adverse Reactions No Known Allergies Current Medications Prescription Sig. Disp. Refills Start Date End Date Status acetaminophen 325 mg Take 2 Tabs by mouth 100 Tab 1 05/12/2013 Active tablet every 4 hours as needed. Indications: FEVER, PAIN baclofen 10 mg tablet Take 0.5 Tabs by 90 Tab 0 05/12/2013 Active mouth 3 times daily. Indications: MUSCLE SPASTICITY OF SPINAL ORIGIN docusate 100 mg Take 1 Cap by mouth 100 Cap 1 05/12/2013 Active capsule 2 times daily as needed. Indications: CONSTIPATION oxyCODONE 5 mg Take 20 mg by mouth Active immediate release every 4 hours as tablet needed. multivitamin tablet Take 1 Tab by mouth Active daily. gabapentin 300 mg Take 300 mg by mouth Active capsule 3 times daily. lisinopril 30 mg Take 30 mg by mouth Active tablet daily. SERTraline 100 mg Take 150 mg by mouth Active tablet daily. traMADol 50 mg tablet Take 50 mg by mouth Active 2 times daily. traZODone 50 mg tablet Take 50 mg by mouth Active at bedtime. ALPRAZolam 0.25 mg Take 0.25 mg by Active tablet mouth every 8 hours as needed. sennosides 8.6 mg Take 1-2 Tabs by 100 Tab 1 07/29/2013 Active tablet mouth 2 times daily as needed. Indications: BOWEL EVACUATION levETIRAcetam 500 mg Take 1 Tab by mouth 10 Tab 0 07/29/2013 Active tablet 2 times daily. 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/2013 Fall 04/02/2013 IVH (intraventricular hemorrhage) 04/02/2013 Intraparenchymal hemorrhage of brain 04/02/2013 Diabetes mellitus 04/02/2013 HTN (hypertension) 04/02/2013 ETOH abuse 04/02/2013 Cerebral edema 04/02/2013 Resolved Problems Problem Noted Date Resolved Date Alcohol withdrawal delirium 04/04/2013 05/04/2013 Wernicke encephalopathy 04/04/2013 05/04/2013 Abnormal microbiological findings in CSF 04/02/2013 05/04/2013 Obstructive hydrocephalus 04/02/2013 05/04/2013 Immunizations Name Dates Previously Given Next Due Influenza, unspecified 03/28/2013 Pneumococcal, unspecified 03/28/2013 Social History Tobacco Use Types Packs/Day Years Used Date Never Assessed Last Filed Vital Signs Vital Sign Reading Time Taken Blood Pressure 126/89 07/29/2013 11:03 AM CDT Pulse 91 07/29/2013 11:03 AM CDT Temperature 36.8 C (98.2 F) 07/29/2013 11:03 AM CDT Respiratory Rate 20 07/29/2013 12:13 PM CDT Height 1.778 m (5' 10") 07/27/2013 3:52 PM CDT Weight 86.183 kg (190 lb) 07/27/2013 3:52 PM CDT Body Mass Index 27.26 07/27/2013 3:52 PM CDT Oxygen Saturation 94% 07/29/2013 11:03 AM CDT Plan of Care Health Maintenance Due Date Last Done Comments Hepatitis B Vaccine (1 of 3 - Primary 1955 Series) Tdap Vaccine 08/30/1967 DIABETIC: Cholesterol 1974 Diabetic: Hdl 1974 Diabetic: Ldl 1974 DIABETIC: Microalbumin 1974 DIABETIC: Triglycerides 1974 MMR Vaccine 1974 Td Vaccine 1974 Pneumococcal Vaccine (1 of 1 - PPSV23) 08/30/1975 Colonoscopy 2006 Prostate Cancer Screening 2006 DIABETIC: Foot Exam 04/02/2013 DIABETIC: Retinal Eye Exam 04/02/2013 DIABETIC: Hemoglobin A1C 10/05/2013 04/06/2013, 04/02/2013 Influenza Vaccine: Seasonal (#1) 11/12/2015 03/28/2013 HCV Screening Completed 04/05/2013 Results from Last 3 Months Not on file
== END 2016-09-07 12:31 | disposition home or self-care (01) ==
LOC: ER 10:40
DX: G89.21 Chronic pain due to trauma (principal); I10 Essential (primary) hypertension

== ENCOUNTER 2016-09-17 17:19 | Emergency (ER) | payer MEDICARE ==
--- NOTE | 2016-09-17 17:42 | ERNOTE ---
Medical Problem HPI - General Time Seen by Provider: 09/17/16 17:26 Source: patient, long term records Exam Limitations: no limitations - Immun/Allergies/Home Medications Immunizations: IMMUNIZATION HX Immunizations Up to Date Yes History of Influenza Vaccine No Hx Pneumococcal Vaccination No Allergies/Adverse Reactions: Allergies No Known Allergies Allergy (Verified 09/17/16 17:32) Home Medications: HOME MEDICATIONS Baclofen 10 mg PO TID 09/07/16 [Last Taken Unknown] Gabapentin [Neurontin] 300 mg PO TID 09/07/16 [Last Taken Unknown] HYDROcodone/ACETAMINOPHEN [Harvey 5-325 Tablet] 1 each PO DAILY 09/07/16 [Last Taken Unknown] Ramipril 2.5 mg PO DAILY 09/07/16 [Last Taken Unknown] ALPRAZolam [Xanax] 0.25 mg PO TID PRN 09/17/16 [Last Taken Unknown] Aspirin 325 mg PO DAILY 09/17/16 [Last Taken Unknown] Bisacodyl [Dulcolax Suppository] 10 mg RC DAILY PRN 09/17/16 [Last Taken Unknown ] Folic Acid 1 mg PO DAILY 09/17/16 [Last Taken Unknown] Pantoprazole Sodium [Protonix] 40 mg PO DAILY 09/17/16 [Last Taken Unknown] Terbinafine HCl [Lamisil] 250 mg PO DAILY 09/17/16 [Last Taken Unknown] Thiamine HCl [Vitamin B-1] 100 mg PO DAILY 09/17/16 [Last Taken Unknown] - History of Present History Narrative: Patient has a history of chronic pain,anxiety, hemorrhagic CVA and regular ETOH use. He usually drinks 6-8 beer per day, last five days ago. Four days ago he fell,sustained a right sided hip fracture that was repaired at [facility]. Today he was transferred to the [facility] for rehab. On his arrival the nursing staff was concerned that the patient might still be detoxing from ETOH and send the patient to our ER for evaluation. The patient states that he hurt everywhere, complaints that he has not been getting enough xanax as he used be on it for years and has not been getting enough refills (see also note from visit on 09/07 when patient had similar complaints). He does not want to be in the care center, wants to go home and drink beer. Review of Systems - Review of Systems Constitutional: Present: recent illness. Absent: fever EYE: Absent: vision changes Respiratory: Absent: shortness of breath Cardiology: Absent: chest pain Gastrointestinal/Abdominal: Absent: nausea, vomiting, abdominal pain Genitourinary: Present: no symptoms reported Musculoskeletal: Present: other - post op right hip pain. Absent: back pain, neck pain Neurological: Present: pre-existing deficit. Absent: headache - Patient's Past Medical History Patient History - Medical: Alcohol Abuse, Anxiety, Chronic Pain Patient History - Cardiac/Respiratory: CVA/Stroke, Hypertension, Hyperlipidemia Patient History - Cancer: No Hx of Cancer Patient History - Surgical Procedures: Orthopedic Patient History - Other: None - Social History Living Situations: long term Abuse History: No History of abuse Psych History: Hx of Anxiety, Hx of Depression Alcohol Use: heavy Drug Use: none - Immunizations Immunizations Up to Date: Yes Hx Pneumococcal Vaccination: No History of Influenza Vaccine: No Physical Exam - Physical Exam General Appearance: Present: wd/wn, alert, no apparent distress, irritable Eye Exam: Normal inspection: bilateral, PERRL: bilateral Ears, Nose, Throat: Present: normal pharynx Respiratory: Present: no respiratory distress, normal breath sounds, no accessory muscle use, lungs clear Cardiovascular/Chest: Present: regular rate, rhythm, no murmur Gastrointestinal/Abdominal: Present: nontender, nondistended, soft Neurological Exam: Present: alert, oriented, no motor/sensory deficits, normal cerebellar test, other - no tremor, depressed affect Skin Exam: Present: normal color, warm/dry ED Progress - Vital Signs Patient's Vital Signs:: I have reviewed the patient's vital signs. Vital Signs: Vital Signs 09/17/16 17:24 Temperature 36.8 C Pulse Rate 82 Respiratory 17 Rate Blood Pressure 155/85 O2 Sat by Pulse 98 Oximetry - Progress/Reassessment Progress Note-Subjective: 09/17/16 17:[address] Allison (who will be taking care of him in the care center), per assessment here patient is not acutely detoxing he would like to start: topamax 25mg daily, lamictal 25mg po daily with supper and antabus 259mg daily with supper, okay to transfer back to care center Departure - Departure Clinical Impression: S/P right hip fracture EtOH dependence Qualifiers: Substance use status: uncomplicated Qualified Code(s): F10.20 - Alcohol dependence, uncomplicated Disposition: [facility] Condition: Good
--- OUTSIDE RECORDS SUMMARY | 2016-09-17 17:43 | XMS REPORT | Continuity of Care Document ---
:1955 Author Organization [facility] ([facility]) Address [place] [address] Phone [phone] Care Team Providers Name Role Phone Provider, No-Primary Care Primary Care Provider Unavailable Source Comments This disclosure is being made pursuant to the Care Everywhere program, applicable federal and state laws, and may not contain all informaitonavailable regarding this patient.[facility] ([facility]) Active Allergies and Adverse Reactions No Known [...]
[2016-09-17 18:36] VITALS: BP 155/84
[2016-09-17] MEDS ORDERED: oxyCODONE HCL/ACETAMINOPHEN 1 TAB TABLET PO ONE (18:53)
[2016-09-17] MEDS ORDERED: ALPRAZolam 0.25 MG TABLET PO ONE (18:53)
[2016-09-17] MEDS ORDERED: ALPRAZolam 0.25 MG TABLET ONE (18:54)
[2016-09-17] MEDS ORDERED: oxyCODONE HCL/ACETAMINOPHEN 1 TAB TABLET ONE (18:54)
== END 2016-09-17 19:13 ==
LOC: ER 17:19
DX: Z98.890 Other specified postprocedural states (principal); F10.20 Alcohol dependence, uncomplicated; F41.9 Anxiety disorder, unspecified; G89.29 Other chronic pain; Z86.73 Personal history of transient ischemic attack (TIA), and cerebral infarction without residual deficits; I10 Essential (primary) hypertension; E78.5 Hyperlipidemia, unspecified

== ENCOUNTER 2016-11-16 02:12 | Emergency (ER) | payer MEDICARE, MEDICAID ==
--- NOTE | 2016-11-16 03:25 | ERNOTE ---
Upper Extremity HPI - Narrative Date of Service: 11/16/16 - General Extremities Pain Location: arm: right - and right leg Time Seen by Provider: 11/16/16 02:24 Source: patient Exam Limitations: no limitations - Immun/Allergies/Home Medications Immunizations: IMMUNIZATION HX Immunizations Up to Date Yes History of Influenza Vaccine No Hx Pneumococcal Vaccination No Allergies/Adverse Reactions: Allergies Allergy/AdvReac Type Severity Reaction Status Date / Time No Known Allergies Allergy Verified 11/16/16 02:31 Home Medications: HOME MEDICATIONS Baclofen 10 mg PO TID 09/07/16 [Last Taken Unknown] Gabapentin [Neurontin] 300 mg PO TID 09/07/16 [Last Taken Unknown] Ramipril 2.5 mg PO DAILY 09/07/16 [Last Taken Unknown] Aspirin 325 mg PO DAILY 09/17/16 [Last Taken Unknown] Folic Acid 1 mg PO DAILY 09/17/16 [Last Taken Unknown] Pantoprazole Sodium [Protonix] 40 mg PO DAILY 09/17/16 [Last Taken Unknown] Bisacodyl [Dulcolax Suppository] 10 mg RC DAILY PRN 11/16/16 [Last Taken Unknown ] Clonazepam 2 mg PO HS 11/16/16 [Last Taken Unknown] Clonidine HCl [Catapres] 0.1 mg PO TID 11/16/16 [Last Taken Unknown] Disulfiram [Antabuse] 250 mg PO DAILY 11/16/16 [Last Taken Unknown] Lamotrigine [Lamictal] 100 mg PO DAILY 11/16/16 [Last Taken Unknown] Naltrexone HCl [ReVia] 50 mg PO DAILY 11/16/16 [Last Taken Unknown] Polyethylene Glycol 3350 [Miralax] 17 gm PO DAILY 11/16/16 [Last Taken Unknown] Tamsulosin HCl 0.4 mg PO DAILY 11/16/16 [Last Taken Unknown] Topiramate [Topamax] 25 mg PO DAILY 11/16/16 [Last Taken Unknown] diphenhydrAMINE HCL [Benadryl] 50 mg PO QID 11/16/16 [Last Taken Unknown] - History of Present Illness Narrative: He recently spent 7 weeks in [facility] for rehabilitation after a hip fracture. He was anxious to get home. He has been home for several weeks. Noticed increased swelling of his right leg. He attributes this to not using his walker as much because he is using his electric wheelchair predominantly. [facility] he had an exercise bike that had both arm and leg movement and he felt this was quite useful. He also feels that his right arm is swelling. He is concerned about blood clots. No injury or recent fall. He continues to drink alcohol. He drinks 8-9 year per day. This is normal for him. He has never had blood clots. He is not on any blood thinners to his knowledge. Occurred: yesterday Severity: mild Method of Injury: Reports: no apparent injury Loss of Consciousness: Reports: no loss of consciousness Associated Symptoms: Denies: loss of power (rt arm), loss of power (lt arm) Other Injuries: Reports: none Prior Treament: Reports: recently hospitalized Review of Systems - Review of Systems Constitutional: Absent: fever, chills, fatigue EYE: Present: no symptoms reported Respiratory: Present: no symptoms reported Musculoskeletal: Absent: back pain Neurological: Absent: headache, weakness - nothing new Psych: Present: no symptoms reported - Patient's Past Medical History Patient History - Medical: Alcohol Abuse, Anxiety, Chronic Pain Patient History - Cardiac/Respiratory: CVA/Stroke, Hypertension, Hyperlipidemia Patient History - Cancer: No Hx of Cancer Patient History - Surgical Procedures: Orthopedic Patient History - Other: None - Social History Living Situations: home Abuse History: No History of abuse Psych History: Hx of Anxiety, Hx of Depression Smoking Status: Never smoker Alcohol Use: heavy Drug Use: none - Immunizations Immunizations Up to Date: Yes Hx Pneumococcal Vaccination: No History of Influenza Vaccine: No Physical Exam - Physical Exam General Appearance: Present: wd/wn, alert, no apparent distress Head Exam: Present: normal inspection Respiratory: Present: no respiratory distress Cardiovascular/Chest: Present: regular rate, rhythm Extremity Exam: Present: decreased range of motion - right arm and leg s/p cva, pedal edema - 2+ right leg to thigh, no noticeable swelling right arm.. Absent : calf tenderness Neurological Exam: Present: alert, oriented, normal mood/affect Skin Exam: Present: normal color ED Progress - Results and Orders Patient's Lab Results:: I have reviewed the patient's lab results. - Vital Signs Patient's Vital Signs:: I have reviewed the patient's vital signs. Vital Signs: Vital Signs 11/16/16 02:17 Temperature 36.9 C Pulse Rate 113 H Respiratory 20 Rate Blood Pressure 150/110 O2 Sat by Pulse 97 Oximetry - CT/Ultrasound CT/Ultrasound Narrative: both upper and lower right extremity ultrasounds negative for DVT. - Progress/Reassessment Chief Complaint: Upper Extremity Injury/Problem Plan - Plan Plan: Continue current meds. F/U with PCP. Resume prior activity. Quit using wheelchair. Walk. Departure Clinical Impression: Edema extremities, Status post stroke, EtOH dependence - Departure Disposition: Home self-care Condition: Fair Instructions: Peripheral Edema Additional Instructions: Walk as much as you can. Try not to use your wheelchair. Follow up with Dr. Allison within a week. Referrals: Brandt Morgan MD [Staff Physician] -
[2016-11-16 03:30] LABS: Mean Cell Volume 88.1 fl (78-100); Mean Corpuscular Hemoglobin 29.4 pg (27-31); Mean Corpuscular Hgb Conc 33.3 g/dl (32-36); Mean Platelet Volume 9.3 fl (6.0-9.5); Neutrophil # 4.5 K/mm3 (1.3-6.0); Neutrophil % 68.1 % (42-75.0); Platelet Count 271 K/mm3 (150-450); Red Blood Count 4.77 M/mm3 (4.7-6.0); Red Cell Distribution Width 13.2 % (11.5-14.0); White Blood Count 6.5 K/mm3 (4.0-10.5)
[2016-11-16 03:51] LABS: Albumin * 3.9 gm/dl (3.4-5.0); Anion Gap 15.2 mmol/L (6.8-13.8); BUN/Creatinine Ratio 10.3 (9.0-21.6); Bilirubin, Total 0.3 mg/dL (0.0-1.1); Ca. Corrected For Albumin 8.8 mg/dL (8.4-10.2); Carbon Dioxide 25.1 mmol/L (24-32.6); Potassium 4.3 mmol/L (3.4-4.6); Total Protein 7.9 gm/dL (6.2-8.2)
[2016-11-16 05:43] VITALS: BP 164/100
== END 2016-11-16 06:26 | disposition home or self-care (01) ==
LOC: ER 02:12
DX: R60.0 Localized edema (principal); Z86.73 Personal history of transient ischemic attack (TIA), and cerebral infarction without residual deficits; F10.20 Alcohol dependence, uncomplicated; G89.29 Other chronic pain; I10 Essential (primary) hypertension; E78.5 Hyperlipidemia, unspecified; F41.9 Anxiety disorder, unspecified
CPT/HCPCS: 36415; 80053; 83880; 85025; 85379; 93971; 99284; G0481